=== PATIENT | female | born 1965 | race African-American/Black ===

== ENCOUNTER 2025-02-28 01:33 | Emergency (ER) | payer MEDICARE, SELFPAY ==
[2025-02-28 01:46] VITALS: BP 147/82; PULSE 107; RESP 18; TEMP 36.7; O2SAT 100; BMI 20.3
[2025-02-28 02:10] LABS: Rapid Strep A Test Positive (Negative)
[2025-02-28 02:38] LABS: Influenza A NEGATIVE (Negative); Influenza B NEGATIVE (Negative); Respiratory Syncytial Virus Ce NEGATIVE (Negative); SARS-CoV-2 PCR NEGATIVE (Negative)
[2025-02-28] MEDS: penicillin g (L-A) 1,200,000 unit/2 mL Syr 1200000 UNIT IM (02:59)
[2025-02-28 03:04] VITALS: BP 118/68; PULSE 83; RESP 16; O2SAT 100
--- NOTE | 2025-02-28 03:23 | ED_ITS ---
HPI - General Adult General: Chief complaint: Upper Respiratory Infection Stated complaint: Throat feels swollen hard to breath Time Seen by Provider: 02/28/25 01:58 History of Present Illness: Almas Haddad presents to the emergency department with severe throat pain and difficulty swallowing. The patient reports swollen glands and an inability to swallow, describing her throat as hurting real bad. She mentions that she has tried various remedies, including gargling with salt water and using hot water in the shower to loosen phlegm, but these have been ineffective. The patient notes that she has excessive salivation and difficulty expectorating phlegm, stating, I can't get it up. I've tried everything. She also reports some difficulty breathing, particularly related to the phlegm accumulation. The severity of her symptoms is significant, with the patient agreeing that her discomfort can be characterized as pain. The duration and exact onset of symptoms are not specified, but the acute nature of her presentation suggests a recent development. Related Data Allergies Allergy/AdvReac Type Severity Reaction Status Date / Time No Known Allergies Allergy Verified 02/28/25 01:48 Review of Systems General: Reports: 10 or more systems reviewed and unremarkable except in HPI and below Physical Exam Const: COMMON NORMALS: no acute distress, patient oriented x3, healthy appearing, alert and well nourished HENMT: COMMON NORMALS: normocephalic HEAD & SCALP: normocephalic MOUTH: tongue normal and moist mucous membranes abnormal; no drooling and no muffled voice THROAT: abnormal tonsil bilateral erythema and exudates and posterior oropharynx abnormal (Erythematous and swollen no kassie tonsillar abscess) Eye: COMMON NORMALS: EOMs intact bilaterally Neck/C-Spine: COMMON NORMALS: full ROM and supple Resp: COMMON NORMALS: normal respiratory effort, No retractions and clear to auscultation bilaterally AUSCULTATION: clear to auscultation bilaterally Cardio: COMMON NORMALS: regular rate, regular rhythm, No gallops present (Cardio) and No murmurs present (Cardio) RATE: regular rate RHYTHM: regular rhythm GI: COMMON NORMALS: Soft to palpation and non-tender PALPATION: Yes Soft to palpation Extremity: GENERAL: Yes normal exam except as noted Neuro: COMMON NORMALS: patient oriented x3 SENSORIUM/ORIENTATION: Yes alert Skin: COMMON NORMALS: no rashes or lesions noted GENERAL SKIN EXAM: no rashes or lesions noted Course Vital Signs: Vital signs: Vital Signs Temperature 98.0 F 02/28/25 01:46 Pulse Rate 83 02/28/25 03:04 Respiratory Rate 16 02/28/25 03:04 Blood Pressure 118/68 02/28/25 03:04 Pulse Oximetry 100 02/28/25 03:04 Oxygen Delivery Me thod Room Air 02/28/25 03:04 MDM - General Adult Medical Decision Making Patient presents with classic symptoms of strep throat, including severe sore throat, difficulty swallowing, and swollen glands. Physical examination reveals significant oropharyngeal swelling without evidence of peritonsillar abscess. The patient reports difficulty expectorating phlegm despite attempts with steam inhalation. Given the clinical presentation, a diagnosis of streptococcal pharyngitis is made. - Administer intramuscular 1,200,000 units pen G - Educate patient on symptomatic relief measures: - Gargle with salt water for pain relief (warn about initial burning sensation) - Anticipate symptom improvement within 24 hours post-injection - Assess for adequate airway and breathing (patient denies current difficulty) Lab Data Laboratory Results Influenza A (PCR) Negative (Negative) 02/28/25 01:55 Influenza Type B (PCR) Negative (Negative) 02/28/25 01:55 RSV (PCR) Negative (Negative) 02/28/25 01:55 SARS-CoV-2 (PCR) Negative (Negative) 02/28/25 01:55 Group A Strep Rapid Positive (Negative) H 02/28/25 01:55 No radiology studies performed this visit Discharge Plan Discharge Patient Disposition: Home Clinical Impression: Acute streptococcal pharyngitis Condition: Stable Discharge Orders: Discharge ED (Routine); Ordered 02/28/25 Ordered By: David Law Discharge Diet: Advance as tolerated Discharge Activity: Resume usual activity Patient Instructions: Opioid Safety, Pain Management Activity Restrictions/Additional Instructions: Please return to the emergency department with any new or worsening symptoms. Print Language: Bulgarian Coding Level of Care Code ED Lip Reading Teacher for Santo Nguyen
[2025-02-28 03:39] VITALS: BP 118/68; PULSE 107; RESP 16; O2SAT 99
== END 2025-02-28 03:40 | disposition home or self-care (01) ==
PROVIDERS: Emergency Provider General Practice
DX: J02.0 Streptococcal pharyngitis (principal); Z11.52 Encounter for screening for COVID-19
CPT/HCPCS: 87637; 87880; 96372; 99284; J0561

== ENCOUNTER 2025-08-26 01:46 | Emergency (ER) | payer MEDICARE, MEDICAID, SELFPAY ==
[2025-08-26 01:41] VITALS: BP 162/95; PULSE 81; RESP 21; TEMP 36.9; O2SAT 99
--- NOTE | 2025-08-26 01:45 | CTR_ITS ---
PROCEDURE INFORMATION: Exam: CT Head Without Contrast Exam date and time: 08/26/2025 1:50 AM Age: 60 years old Clinical indication: Pain; Headache; EMS arrival directly to CT for intractable MILLER. TECHNIQUE: Imaging protocol: Computed tomography of the head without contrast. Radiation optimization: All CT scans at this facility use at least one of these dose optimization techniques: automated exposure control; mA and/or kV adjustment per patient size (includes targeted exams where dose is matched to clinical indication); or iterative reconstruction. COMPARISON: No relevant prior studies available. RADIATION DOSE METRICS: Total DLP (mGy-cm): 826.59 FINDINGS: Brain: No acute intracranial hemorrhage. No midline shift or mass effect. No acute territorial infarct. Global age-related cerebral atrophy. 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 Cerebral ventricles: No ventriculomegaly. Paranasal sinuses: Visualized sinuses are unremarkable. No fluid levels. Mastoid air cells: Visualized mastoid air cells are well aerated. Bones: Unremarkable. No acute fracture. Soft tissues: Unremarkable. CT/CT head wo con* [id number] IMPRESSION: No acute intracranial hemorrhage. No midline shift or mass effect.
--- OUTSIDE RECORDS SUMMARY | 2025-08-26 01:51 | XMS_ITS | Clinical Summary ---
Author Organization [facility] Address [address] [place] [address] Care Team Providers Care Volunteer Fire Fighter Name Role Phone Unavailable Primary Care Provider Unavailabl e Source Comments PLEASE NOTE, if this patient is a minor, it may be UNLAWFUL to discuss sensitive information that is contained in these records (such as FAMILY PLANNING, MENTAL HEALTH or SUBSTANCE ABUSE) with the minor patient's parent or other person without the patient's specific authorization.[facility] Medications HYDROcodone-acet aminophen (NORCO) 5-325 mg per tablet 07/19/2021 Active ibuprofen 600 mg tablet 07/19/2021 Active sulfamethoxazole -trimethoprim (BACTRIM DS) 800-160 mg per tablet 07/19/2021 Active traMADoL (ULTRAM) 50 mg tablet Take 1 Tablet by mouth every 6 (six) hours as needed for pain 15 Tablet 07/24/2021 Active Immunizations Immunization Administration Dates Next Due INFLUENZA, UNSPECIFIED 12/12/2019 Moderna COVID-19 Vaccine, re d cap blue label, 12+ Primary Series 01/21/2021,12/24/2020 TDAP 12/21/2019 Social History Tobacco Use Types Packs/Day Years Used Date Smoking Tobacco: Light Smoker Smokeless Tobacco: Never Alcohol Use Standard Drinks/Week Comments Yes 0 (1 standard drink = 0.6 oz pur e alcohol) Social Connections Answer Date Recorded Connectedness 0 06/22/2024 Financial Resource Strain Answer Date R ecorded Financial Resource Strain 0 2020 Stress Answer Date Recorded Stress 0 07/22/2021 Physical Activity Answer Date Recorded Physical Activity 0 07/22/2021 Food Insecurity Answer Date Recorded Food 0 07/06/2024 Transportation Needs Answer Date Record ed Transportation 0 07/22/2021 Housing Stability Answer Date Recorded Housing 0 07/22/2021 Safety and Environment Answer Date Frank rded Safety 0 07/22/2021 Utilities Answer Date Recorded Utilities 0 07/22/2021 Employment Answer Date Recorded Stress 0 06/22/2024 Comments Unknown Sex and Gender Information Value Date Recorded Sex Assigned at Not on file Legal Sex Female 11:33 AM PDT Gender Identity Not on file Sexual Orientation Not on file Last Filed Vital Signs Vital Sign Reading Time Taken Comments Blood Pressure 144/68 07/22/2021 9:10 AM PDT Pulse 58 07/22/2021 9:10 AM PDT Temperature 36.6 C (97.8 F) 07/22/2021 9:10 AM PDT Respiratory Rate 16 07/22/2021 9:10 AM PDT Oxygen Saturation - - Inhaled Oxygen Concentration - - Weight 66.2 kg (146 lb) 07/22/2021 9:10 AM PDT Height 167.6 cm (5' 6 ) 07/22/2021 9:10 AM PDT Body Mass Index 23.57 07/22/2021 9:10 AM PDT Plan of Treatment Health Maintenance Due Date Last Done Comments Anxiety Screening 1965 Diabetes Screening 1965 HPV Screening (self-collect) 1965 HPV Screening 1965 Hepatitis C Screening 1965 Lipid Screening 1965 Pap + HPV 1965 Tobacco Cessation Counseling (#1) 1965 Tobacco Screening 1965 HIV Screening 1978 Medicare Annual Wellness Visit 1981 Cervical Cancer Screening 02/05/1984 Pap Smear 02/05/1984 Breast Cancer Screening (Mammogram) 2003 CT Colonography 02/05/2008 Colonoscopy 02/05/2008 Colorectal Cancer Screening 02/05/2008 FIT/gFOBT 02/05/2008 Fecal DNA 02/05/2008 Flexible Sigmoidoscopy 02/05/2008 Imm-Pneumococcal 50+ (1 of 1 - PCV) 2013 Imm-Zoster, Recombinant (1 of 2) 2013 Hypertension Screening (#1) 07/22/2022 Alcohol and Drug Screen 10/11/2024 07/22/2021, 07/22 Depression Annual Screen 10/11/2024 [id number] ( season) 2025 021, 12/24/2020 Imm-Influenza (#1) 2025 12/12/2019 Imm-DTaP/Tdap/Td (2 - Td or Tdap) 12/20/2029 020 Cervical Ablation/Cold-Knife Conization Discontinued Cervical Cryotherapy Discontinued Colposcopy Discontinued Excision/Leep Discontinued HPV Genotyping Discontinued Vaginal Pap Discontinued Vulvoscopy Discontinued Insurance [facility] [place] [place]
--- OUTSIDE RECORDS SUMMARY | 2025-08-26 01:51 | XMS_ITS | Clinical Summary ---
Author Organization [facility] Address [address] [place] [address] Phone Care Team Providers Care Vehicle Body Builder Name Role Phone Pcp, No Primary Care Provider Unavailabl e Source Comments The [employer] EMR is fully implemented at [facility] across theentire continuum of care.[facility] Allergies No known active allergies Medications * Always verify current medications with the patient. ibuprofen (MOTRIN) 600 mg tablet Take 1 tablet by mouth 3 times daily as needed for Pain. Take with food. 30 tablet 1 Active HYDROcodone-ac etaminophen (NORCO) 5-325 mg tablet Take 1 tablet by mouth every 6 hours as needed for Pain. Max dose of acetaminophen is 3000 mg from all sources in 24 hours. 4 tablet 1 Active Social History Tobacco Use Types Packs/Day Years Used Date Smoking Tobacco: Never Assessed Comments Unknown Sex and Gender Information Value Date Recorded Sex Assigned at Not on file Legal Sex Female 12:03 PM PDT Gender Identity Not on file Sexual Orientation Not on file Last Filed Vital Signs Vital Sign Reading Time Taken Comments Blood Pressure 132/75 07/19/2021 5:57 AM PDT Pulse 80 07/19/2021 5:57 AM PDT Temperature 36.7 C (98.1 F) 07/18/2021 11:59 PM PDT Respiratory Rate 15 07/19/2021 5:57 AM PDT Oxygen Saturation 99% 07/18/2021 11:59 PM PDT Inhaled Oxygen Concentration - - Weight - - Height - - Body Mass Index - - Plan of Treatment Health Maintenance Due Date Last Done Comments CRC Screening 1963 CT Colonography Test 1965 Cologuard 1965 Colonoscopy 1965 FIT Test 1965 Flexible Sigmoidoscopy 1963 Hep C Screening 1963 Depression Assessment (PHQ 2 -9 / PHQ A / EPDS) 1975 DTaP,Tdap,and Td Vaccines (1 - Tdap) 1982 Cervical Cancer Screening 02/05/1984 HPV or Cotesting 02/05/1984 Pap Smear 02/05/1984 Mammography 1993 Pneumococcal 50+ (1 of 1 - PCV) 2013 Zoster Vaccine (1 of 2) 2013 COVID-19 Vaccination (SARS-C oV-2) (1 - 2024- season) 2025 Influenza Vaccine (#1) 2025 RSV Obstetrics & Adults (1 - 1-dose 75+ series) 2038 Hepatitis B Vaccine Aged Out No longe r eligible based on patient's age to complete this topic Insurance * Guarantor: Geovanny GAO Account Type Relation to Patient Date of Phone Billing Address Personal/Family Self 1965 [address] [place] [address] [facility] Care MEDICARE * Guarantor: MURRAY Emilyrola Account Type Relation to Patient Date of Phone Billing Address Personal/Family Self 1965 [address] [place] [address] [facility] MEDIC[facility] Advance Directives For more information, please contact: [phone] Healthcare Agents on File Name Relationship Healthcare Agent [facility] Communication Ana Payton Child 4. Emergency Con tact Only - Only Share Emergent Health Information Care Teams Vehicle Body Builder Relationship Specialty Start Date End Date Pcp, No PCP - General 07/11/21
--- NOTE | 2025-08-26 02:02 | ECG_ITS ---
[employer] Test Date: 2025-08-26 Pat Name: Geovanny Haddad Department: Room: Gender: Female Church Business Administrator: : 1965 Requested By: Keaton James Order Number: [id number] Allen MD: Alessandro Peralta M.D. Measurements Intervals Hazel Rate: 94 P: 0 SC: 0 QRS: 54 QRSD: 86 T: 79 QT: 399 QTc: 499 Interpretive Statements SINUS RHYTHM WITH FREQUENT VENTRICULAR PREMATURE COMPLEXES VOLTAGE CRITERIA FOR LVH [MEETS CRITERIA IN ONE OF: R(aVL), S(V1), R(V5), R(V5/V6)+S(V1)] INTERPRETATION BASED ON A DEFAULT AGE OF 40 YEARS No previous ECG available for comparison Electronically Signed On 08-26-2025 15:10:16 CRM MARKETING ANALYST by Alessandro Peralta M.D. [id number]
--- NOTE | 2025-08-26 02:04 | XRR_ITS ---
PROCEDURE INFORMATION: Exam: XR Chest Exam date and time: 08/26/2025 2:11 AM Age: 60 years old Clinical indication: Chest pressure and other: Lorenzo/hypertension; EMS arrival for intractable LORENZO with chest pain and hypertension. EMS reports history of afib. ; Additional info: Headache, HTN, chest pain TECHNIQUE: Imaging protocol: Radiologic exam of the chest. Views: 1 view. COMPARISON: No relevant prior studies available. FINDINGS: Lungs: Unremarkable. No consolidation. Pleural spaces: Unremarkable. No pleural effusion. No pneumothorax. Heart/Mediastinum: Cardiomegaly. Bones/joints: Unremarkable. XR/XR chest 1V portable [id number] IMPRESSION: No pneumonia.
[2025-08-26 02:19] LABS: Hematocrit 41.8 % (36-47); Hemoglobin 13.10 g/dL (11.27-16.99); Mean Corpuscular HGB Conc 31.3 g/dL (30-55); Mean Corpuscular Hemoglobin 26.1 pg (27-33); Mean Corpuscular Volume 83.3 fl (85-98); Nucleated Red Blood Cells % 0 %; Platelet Count 175 10^3/cmm (157-399); Red Blood Count 5.02 10^6/uL (3.85-5.65); White Blood Count 7.58 10^3/uL (3.29-11.43)
[2025-08-26 02:21] LABS: INR 0.86 (0.8-1.2); Partial Thromboplastin Time 28.6 SECONDS (23.9-36.7); Prothrombin Time 12.40 SECONDS (12.1-14.9)
[2025-08-26] MEDS: haloperidol inj 5 mg/mL INJ 1 mL IVP (02:21)
[2025-08-26 02:22] VITALS: RESP 21; O2SAT 100
[2025-08-26] MEDS: morphine 4 mg/mL SDV 1 mL IVP (02:22)
[2025-08-26 02:30] LABS: Alanine Aminotransferase 9 U/L (0-33); Albumin Level 4.5 g/dL (3.5-5.2); Alkaline Phosphatase 111 U/L (35-105); Anion Gap 13.2 (5-19); Aspartate Amino Transferase 16 U/L (0-32); Blood Urea Nitrogen 20 mg/dL (8-23); Calcium 9.4 mg/dL (8.5-10.5); Carbon Dioxide 28 mmol/L (22-29); Chloride 104 mmol/L (98-107); Globulin 2.6 g/dL (1.3-4.6); Glucose 123 mg/dL (65-115); Magnesium 2.3 mg/dL (1.7-2.3); Osmolality Calculated 296 mOsm/kg (285-295); Potassium 4.2 mmol/L (3.5-5.1); Sodium 141 mmol/L (136-145); Total Protein 7.1 g/dL (6.6-8.7); Troponin(5th) Baseline 15 ng/L (0-10)
[2025-08-26 02:45] LABS: Glucose Urine UA Negative (Normal); Nitrate Urine Negative (Negative); Specific Gravity, Urine 1.019 (1.005-1.030)
[2025-08-26 02:49] LABS: Add Urine Microscopic? YES
[2025-08-26 02:53] LABS: PCP Screen Urine Negative (Negative)
--- NOTE | 2025-08-26 03:13 | W.ED.HA ---
HPI - Headache General: Chief Complaint: Headache Stated Complaint: headache Time Seen by Provider: 08/26/25 01:49 History of Present Illness: 60-year-old female Patient presents with right-sided headache and facial numbness. The patient reports pain primarily localized to the right side of the head.The patient has a history of previous stroke, though does not typically experience headaches. Patient also reports associated neck pain. Patient is not participating in exam or history taking further at this time. Related Data Allergies Allergy/AdvReac Type Severity Reaction Status Date / Time No Known Allergies Allergy Verified 02/28/25 01:48 Physical Exam Const: EXAM LIMITATIONS: altered mental status GENERAL APPEARANCE: cooperative HENMT: COMMON NORMALS: normocephalic, atraumatic and Normal external nose present HEAD & SCALP: normocephalic and atraumatic FACE & SINUS: normal facial exam and face symmetric NOSE: Normal external nose present Eye: COMMON NORMALS: Equal, round and reactive pupils present and EOMs intact bilaterally PUPIL: Yes Equal, round and reactive pupils present Neck/C-Spine: GENERAL: Yes trachea midline Chest: CHEST: Yes Symmetrical chest wall rise Resp: COMMON NORMALS: normal respiratory effort, No retractions, No use of accessory muscles and clear to auscultation bilaterally AUSCULTATION: clear to auscultation bilaterally Cardio: COMMON NORMALS: regular rate and regular rhythm RATE: regular rate RHYTHM: regular rhythm GI: COMMON NORMALS: Normal to inspection, nondistended, normoactive bowel sounds present Extremity: COMMON NORMALS: no pedal edema Neuro: MADI COMA SCALE: document GCS findings Mozier coma scale eye opening: To sound Madi coma scale verbal response: Confused Mozier coma scale motor response: Obey commands Mozier coma scale total score: 13 COORDINATION/BALANCE: [id number] test normal SPEECH: no expressive aphasia and no receptive aphasia SENSORY EXAM: Yes extremities (intact) MOTOR EXAM: Normal motor muscle tone present throughout COORDINATION: [id number] test normal Course Vital Signs: Vital signs: Vital Signs Temperature 98.5 F 08/26/25 01:41 Pulse Rate 73 08/26/25 04:31 Respiratory Rate 16 08/26/25 04:31 Blood Pressure 134/89 08/26/25 04:31 Pulse Oximetry 97 08/26/25 04:31 Oxygen Delivery Me thod Room Air 08/26/25 01:41 MDM - Headache Medical Decision Making Patient is hypertensive and route to the hospital, and on arrival. She squirms in pain, and makes strange facial movements. She is given morphine and Haldol with complete relief of her headache. Her blood pressure is currently 121/87, heart rate 90, saturations 100% on room air. Initially, EKG timed 202 read at 204 reveals a sinus rhythm with frequent PVCs. No acute ST wave changes. PVCs are less frequent currently. CBC is normal. BMP is normal. Chest x-ray is clear. Head CT is negative. Urinalysis is negative. Urine drug screen is positive for marijuana and amphetamines. With resolution of her symptoms she will be stable for discharge. She is encouraged not to use illicit substances. Lab Data 08/26/25 01:30 08/26/25 01:[address] 08/26/25 01:45 IMPRESSION: No acute intracranial hemorrhage. No midline shift or mass effect. Chest X-Ray 08/26/25 02:04 IMPRESSION: No pneumonia. Laboratory Results WBC 7.58 10^3/uL (3.29-11.43) 08/26/25 01:30 RBC 5.02 10^6/uL (3.85-5.65) 08/26/25 01:30 Hgb 13.10 g/dL (11.27-16.99) 08/26/25 01:30 Hct 41.8 % (36-47) 08/26/25 01:30 MCV 83.3 fl (85-98) L 08/26/25 01:30 MCH 26.1 pg (27-33) L 08/26/25 01:30 MCHC 31.3 g/dL (30-55) 08/26/25 01:30 RDW 13.7 % (12.1-15.1) 08/26/25 01:30 Plt Count 175 10^3/cmm (157-399) 08/26/25 01:30 MPV 12.7 fL (7.4-10.4) H 08/26/25 01:30 Neut % (Auto) 30.0 % 08/26/25 01:30 Lymph % (Auto) 60.9 % 08/26/25 01:30 [place] % (Auto) 7.3 % 08/26/25 01:30 Eos % (Auto) 1.2 % 08/26/25 01:30 Baso % (Auto) 0.3 % 08/26/25 01:30 Neut # (Auto) 2.28 10^3/uL (1.8-7.7) 08/26/25 01:30 Lymph # (Auto) 4.6 10^3/uL (0.8-4.8) 08/26/25 01:30 [place] # (Auto) 0.6 10^3/uL (0.2-0.9) 08/26/25 01:30 Eos # (Auto) 0.1 10^3/uL (0.0-0.8) 08/26/25 01:30 Baso # (Auto) 0.0 10^3/uL (0.0-0.1) 08/26/25 01:30 Nucleated RBC % (auto) 0 % 08/26/25 01:30 Nucleated RBCs # 0.0 /100WBC 08/26/25 01:30 PT 12.40 SECONDS (12.1-14.9) 08/26/25 01:30 INR 0.86 (0.8-1.2) 08/26/25 01:30 APTT 28.6 SECONDS (23.9-36.7) 08/26/25 01:30 Sodium 141 mmol/L (136-145) 08/26/25 01:30 Potassium 4.2 mmol/L (3.5-5.1) 08/26/25 01:30 Chloride 104 mmol/L (98-107) 08/26/25 01:30 Carbon Dioxide 28 mmol/L (22-29) 08/26/25 01:30 Anion Gap 13.2 (5-19) 08/26/25 01:30 BUN 20 mg/dL (8-23) 08/26/25 01:30 Creatinine 0.8 mg/dL (0.5-0.9) 08/26/25 01:30 GFR Calculation 87.9 mL/min (90-130) L 08/26/25 01:30 Glucose 123 mg/dL (65-115) H 08/26/25 01:30 Calculated Osmolality 296 mOsm/kg (285-295) H 08/26/25 01:30 Calcium 9.4 mg/dL (8.5-10.5) 08/26/25 01:30 Phosphorus 4.3 mg/dL (2.5-4.5) 08/26/25 01:30 Magnesium 2.3 mg/dL (1.7-2.3) 08/26/25 01:30 Total Bilirubin 0.2 mg/dL (0.15-1.2) 08/26/25 01:30 AST 16 U/L (0-32) 08/26/25 01:30 ALT 9 U/L (0-33) 08/26/25 01:30 Alkaline Phosphatase 111 U/L (35-105) H 08/26/25 01:30 Troponin T Baseline 15 ng/L (0-10) H 08/26/25 01:30 Troponin T 120 Minute 13.16 ng/L (0-10) H 08/26/25 03:36 Delta Troponin T -1.84 ABS# (0-10) L 08/26/25 03:36 C-Reactive Protein 3.0 mg/L (0.0-4.9) 08/26/25 01:30 Total Protein 7.1 g/dL (6.6-8.7) 08/26/25 01:30 Albumin 4.5 g/dL (3.5-5.2) 08/26/25 01:30 Globulin 2.6 g/dL (1.3-4.6) 08/26/25 01:30 Urine Color Yellow (Yellow) 08/26/25 02:32 Urine Appearance Clear (CLEAR) 08/26/25 02:32 Urine pH 7.0 (5-7) 08/26/25 02:32 Ur Specific [place] 1.019 (1.005-1.030) 08/26/25 02:32 Urine Protein Negative (Negative) 08/26/25 02:32 Urine Glucose (UA) Negative (Normal) 08/26/25 02:32 Urine Ketones Negative (Negative) 08/26/25 02:32 Urine Blood 1+ (Negative) A 08/26/25 02:32 Urine Nitrate Negative (Negative) 08/26/25 02:32 Urine Bilirubin Negative (Negative) 08/26/25 02:32 Urine Urobilinogen 1.0 mg/dL (Negative) 08/26/25 02:32 Ur Leukocyte Esterase Trace (Negative) A 08/26/25 02:32 Urine RBC 6-10 /hpf (0-2) 08/26/25 02:32 Urine WBC 0-5 /hpf (0-5) 08/26/25 02:32 Ur Squamous Epith Cells 0-5 /hpf (0-5) 08/26/25 02:32 Amorphous Sediment Not Reportable 08/26/25 02:32 Urine Bacteria None seen /hpf (NONE) 08/26/25 02:32 Hyaline Casts 0.81 /lpf 08/26/25 02:32 Urine Opiates Screen Negative ng/mL (Negative) 08/26/25 02:32 Ur Barbiturates Screen Negative ng/mL (Negative) 08/26/25 02:32 Ur Phencyclidine Scrn Negative ng/mL (Negative) 08/26/25 02:32 Ur Amphetamines Screen Positive ng/mL (Negative) H 08/26/25 02:32 U Benzodiazepines Scrn Negative ng/mL (Negative) 08/26/25 02:32 Urine Cocaine Screen Negative ng/mL (Negative) 08/26/25 02:32 U Marijuana (THC) Screen Positive ng/mL (Negative) H 08/26/25 02:32 All radiology interpretation(s) finalized by discharge Discharge Plan Discharge Patient Disposition: Home Clinical Impression: Headache Qualifiers: Headache type: unspecified Headache chronicity pattern: acute headache Intractability: not intractable Qualified Code(s): R51.9 - Headache, unspecified Amphetamine adverse reaction Qualifiers: Encounter type: initial encounter Qualified Code(s): T43.625A - Adverse effect of amphetamines, initial encounter Condition: Stable Discharge Orders: Discharge ED (Routine); Ordered 08/26/25 Ordered By: Keaton Sanchez Patient Instructions: Acute Delirium (ED), Methamphetamine Use Disorder (ED), Opioid Safety, Pain Management, Patient Portal & Prachi Instructions Activity Restrictions/Additional Instructions: Return for fever, mental status changes, any other concerning symptoms. Avoid any stimulants or illicit drugs. Print Language: Barbadian Coding Level of Care Code ED Gas Roller Operator for Santo Nguyen
[2025-08-26 04:02] LABS: Troponin 5 2HR 13.16 ng/L (0-10); Troponin 5 2HR Delta -1.84 ABS# (0-10)
[2025-08-26 04:31] VITALS: BP 134/89; PULSE 73; RESP 16; O2SAT 97
== END 2025-08-26 04:32 | disposition home or self-care (01) ==
PROVIDERS: Emergency Provider Emergency Medicine
DX: R51.9 Headache, unspecified (principal); T43.625A Adverse effect of amphetamines, initial encounter; X58.XXXA Exposure to other specified factors, initial encounter
CPT/HCPCS: 36415; 70450; 71045; 80053; 80306; 81001; 83735; 84100; 84484; 85025; 85610; 85730; 86140; 93005; 96361; 96374; 96375; 99285; J1630; J2270; J7040

== ENCOUNTER → 2025-09-03 15:25 | Outpatient (BNVA) | payer MEDICARE, MEDICAID, SELFPAY | DX: Z76.89 Persons encountering health services in other specified circumstances (principal); Z13.6 Encounter for screening for cardiovascular disorders; E55.9 Vitamin D deficiency, unspecified; M25.59 Pain in other specified joint; F41.9 Anxiety disorder, unspecified | CPT/HCPCS: 80053; 80061; 82306; 84443; 85025; 85651; 86140 ==

== ENCOUNTER 2025-09-07 05:35 | Emergency (ER) | payer MEDICARE, MEDICAID, SELFPAY ==
--- NOTE | 2025-09-07 05:40 | W.ED.EYEPROB ---
HPI - Eye Problem General: Chief complaint: Eye Problems Stated complaint: EYE PAIN Time Seen by Provider: 09/07/25 05:38 Source: patient and EMS Mode of arrival: EMS Limitations: no limitations History of Present Illness: 60-year-old female states she has been having right pain on and off for weeks. States that sharp pain denies any vision changes she denies headache. She denies any injuries or fevers. Related Data Previous Rx's ?Medication ?Instructions ?Recorded cholecalciferol (vitamin D3) 10 10 mcg PO DAILY #30 caps 09/03/25 mcg (400 unit) capsule citalopram 20 mg tablet (Celexa) 20 mg PO DAILY #30 tabs 09/03/25 melatonin 5 mg capsule 5 mg PO .hs #30 caps 09/03/25 meloxicam 7.5 mg tablet 7.5 mg PO DAILY #30 tabs 09/03/25 erythromycin 5 mg/gram (0.5 %) eye 1 applic ophthalmic (eye) Q6H 5 09/07/25 ointment (3.5 gram tube) days #3.5 grams Allergies Allergy/AdvReac Type Severity Reaction Status Date / Time No Known Allergies Allergy Verified 09/03/25 14:18 Review of Systems Eyes: Reports: eye discomfort [facility] ED PFSH: Medical History CVA (cerebral vascular accident) 2021 PTSD (post-traumatic stress disorder) Anxiety Moderate episode of recurrent major depressive disorder Surgical History (Updated 09/03/25 @ 14:44 by María Etienne NP) H/O: hysterectomy Total Family History (Updated 09/03/25 @ 14:43 by María Etienne NP) Mother Congestive heart failure (CHF) COPD (chronic obstructive pulmonary disease) Stroke Heart disease Social History Smoking and tobacco/nicotine status: current every day tobacco/nicotine user (Marijuana) Substance/Drug Use: current Substance/Drug use frequency: daily Physical Exam Const: COMMON NORMALS: no acute distress, patient oriented x3 and healthy appearing HENMT: COMMON NORMALS: normocephalic and atraumatic HEAD & SCALP: normocephalic and atraumatic Eye: COMMON NORMALS: Equal, round and reactive pupils present and EOMs intact bilaterally PUPIL: Yes Equal, round and reactive pupils present OTHER: Normal vision in the right eye no ulcer or abrasion noted on fluorescein exam pupils are reactive Neck/C-Spine: COMMON NORMALS: full ROM and supple Chest: COMMONS NORMALS: normal inspection of the chest Resp: COMMON NORMALS: normal respiratory effort Cardio: COMMON NORMALS: regular rate RATE: regular rate Extremity: COMMON NORMALS: normal to inspection and full ROM Neuro: COMMON NORMALS: patient oriented x3, moves all extremities and no focal motor deficits Psych: COMMON NORMALS: mental status grossly normal, Normal thought process present and cooperative THOUGHT PROCESS: Normal thought process present Skin: COMMON NORMALS: no rashes or lesions noted and no wounds GENERAL SKIN EXAM: no rashes or lesions noted Course Vital Signs: Vital signs: Vital Signs Temperature 98.4 F 09/07/25 05:48 Pulse Rate 98 09/07/25 05:48 Respiratory Rate 20 H 09/07/25 05:48 Blood Pressure 169/120 09/07/25 05:48 Pulse Oximetry 100 09/07/25 05:48 Oxygen Delivery Me thod Room Air 09/07/25 05:48 MDM - Eye Problem Medical Decision Making Patient presents here with right eye pain differential includes acute angle glaucoma, corneal abrasion, corneal ulcer. Patient has no signs of the above. I did measure her intraocular pressure it was 12. No signs of acute angle glaucoma on fluorescein stain she has no signs of abrasion or ulcer does have some erythema to the eye likely has a conjunctivitis we will prescribe erythromycin ointment and have her follow[facility] with [facility] she is return if worsening she understands agrees to plan No radiology studies performed this visit Discharge Plan Discharge Patient Disposition: Home Clinical Impression: Conjunctivitis Qualifiers: Conjunctivitis type: acute Laterality: right Condition: Stable Prescriptions: New erythromycin 5 mg/gram (0.5 %) ointment 1 applic ophthalmic (eye) Q6H 5 Days Qty: 3.5 0RF No Action citalopram [Celexa] 20 mg tablet 20 mg PO DAILY Qty: 30 0RF melatonin 5 mg capsule 5 mg PO .hs Qty: 30 0RF meloxicam 7.5 mg tablet 7.5 mg PO DAILY Qty: 30 0RF Rx Instructions: Do not take any other NSAIDs while taking. cholecalciferol (vitamin D3) 10 mcg (400 unit) capsule 10 mcg PO DAILY Qty: 30 0RF Discharge Orders: Discharge ED (Routine); Ordered 09/07/25 Ordered By: Jaquelin Graham Referrals: [facility] [Outside] - 4-7 days María Etienne NP [Primary Care Provider, [facility]] Discharge Diet: Advance as tolerated Discharge Activity: Resume usual activity Patient Instructions: Conjunctivitis (ED) Print Language: Citizen Of [place] Coding Level of Care Code ED Hybrid Tester for Santo Nguyen
--- OUTSIDE RECORDS SUMMARY | 2025-09-07 05:41 | XMS_ITS | Clinical Summary ---
Author Organization [facility] Address [address] [place] [address] Phone Care Team Providers Care Electric Fan Assembler Name Role Phone Pcp, No Primary Care Provider Unavailabl e Source Comments The [employer] EMR is fully implemented at [facility] across theentire continuum of care.[facility] Allergies No known active allergies Medications * [...] of Phone Billing Address Personal/Family Self 1965 [address] [place] [address] [facility] Care MEDICARE * Guarantor: MURRAY Emilyrola Account Type Relation to Patient Date of Phone Billing Address Personal/Family Self 1965 [address] [place] [address] [facility] PL[facility] MEDICARE Advance Directives For more information, please contact: [phone] Healthcare Agents on File Name Relationship Healthcare Agent [facility] Communication Ana Payton Child 4. Emergency Con tact Only - Only Share Emergent Health Information Care Teams Electric Fan Assembler Relationship Specialty Start Date End Date Pcp, No PCP - General 07/11/21
[2025-09-07 05:43] VITALS: BP 169/120; PULSE 98; RESP 20; TEMP 36.9; O2SAT 100; BMI 18.8
[2025-09-07 05:48] VITALS: BP 169/120; PULSE 98; RESP 20; TEMP 36.9; O2SAT 100
[2025-09-07 06:18] VITALS: BP 160/101; PULSE 89; O2SAT 98
[2025-09-07] MEDS: tetracaine 0.5% Op Soln 4 mL Btl 1 DROP EYE-BOTH (06:29)
--- NOTE | 2025-09-10 12:59 | DCPLANNER ---
faxed outpatient referral to dr nelly cabrera
== END 2025-09-07 06:32 | disposition home or self-care (01) ==
PROVIDERS: Emergency Provider Emergency Medicine
DX: H10.31 Unspecified acute conjunctivitis, right eye (principal); F12.90 Cannabis use, unspecified, uncomplicated; Z86.73 Personal history of transient ischemic attack (TIA), and cerebral infarction without residual deficits
CPT/HCPCS: 99283; J9999

== ENCOUNTER 2025-09-12 12:21 | Emergency (ER) | payer MEDICARE, MEDICAID, SELFPAY ==
[2025-09-12 12:30] VITALS: BP 150/96; PULSE 60; TEMP 36.8; O2SAT 100; BMI 20.2
[2025-09-12] MEDS: tetracaine 0.5% Op Soln 4 mL Btl 1 DROP EYE-BOTH (12:58)
--- OUTSIDE RECORDS SUMMARY | 2025-09-12 12:58 | XMS_ITS | Clinical Summary ---
Author Organization [facility] Address [address] [place] [address] Phone Care Team Providers Care Comber Fixer Name Role Phone Pcp, No Primary Care Provider Unavailabl e Source Comments The [employer] EMR is fully implemented at [facility] across theentire continuum of care.[facility] Allergies No known active allergies Medications * [...] of Phone Billing Address Personal/Family Self 1965 [address] [place] [address] [facility] PLAN [facility] Care MEDICARE * Guarantor: MURRAY Emilyrola Account Type Relation to Patient Date of Phone Billing Address Personal/Family Self 1965 [address] [place] [address] [facility] PL[facility] MEDICARE Advance Directives For more information, please contact: [phone] Healthcare Agents on File Name Relationship Healthcare Agent [facility] Communication Ana Payton Child 4. Emergency Con tact Only - Only Share Emergent Health Information Care Teams Comber Fixer Relationship Specialty Start Date End Date Pcp, No PCP - General 07/11/21
--- NOTE | 2025-09-12 13:23 | W.ED.EYEPROB ---
HPI - Eye Problem General: Chief complaint: Eye Problems Stated complaint: eye spasms Time Seen by Provider: 09/12/25 12:47 History of Present Illness: 60-year-old female presents emergency room complaining of right eye pain excessive watering and redness she has had it for several days she was seen a week ago and given a topical antibiotic ointment it seemed to get better and then worsened again she has had some photophobia with that as well. She has not had any direct trauma. No previous surgeries to the eye. No other illness or injury Associated symptoms: Denies fever(s) or neck pain Related Data Previous Rx's ?Medication ?Instructions ?Recorded cholecalciferol (vitamin D3) 10 10 mcg PO DAILY #30 caps 09/03/25 mcg (400 unit) capsule citalopram 20 mg tablet (Celexa) 20 mg PO DAILY #30 tabs 09/03/25 melatonin 5 mg capsule 5 mg PO .hs #30 caps 09/03/25 meloxicam 7.5 mg tablet 7.5 mg PO DAILY #30 tabs 09/03/25 Allergies Allergy/AdvReac Type Severity Reaction Status Date / Time No Known Allergies Allergy Verified 09/12/25 12:36 Review of Systems Const: Denies: fever(s) or chills Card: Denies: chest pain Resp: Denies: dyspnea Musc: Denies: neck pain or back pain Skin/Breast: Denies: rash PFSH ED PFSH: Medical History CVA (cerebral vascular accident) 2021 PTSD (post-traumatic stress disorder) Anxiety Moderate episode of recurrent major depressive disorder Surgical History H/O: hysterectomy Total Family History Mother Congestive heart failure (CHF) COPD (chronic obstructive pulmonary disease) Stroke Heart disease Social History Smoking and tobacco/nicotine status: current every day tobacco/nicotine user (Marijuana) Substance/Drug Use: current Substance/Drug use frequency: daily Physical Exam Const: GENERAL APPEARANCE: cooperative ORIENTATION/CONSCIOUSNESS: Yes awake, Yes oriented to person, Yes oriented to place and Yes oriented to time HENMT: COMMON NORMALS: normocephalic, atraumatic and hearing grossly normal bilaterally HEAD & SCALP: normocephalic and atraumatic Eye: OTHER: Topical anesthesia was tetracaine. Fluorescein dye applied under black light patient noted to have a central corneal abrasion Resp: COMMON NORMALS: normal respiratory effort, No retractions, No use of accessory muscles and clear to auscultation bilaterally AUSCULTATION: clear to auscultation bilaterally Cardio: COMMON NORMALS: regular rate, regular rhythm and No murmurs present (Cardio) RATE: regular rate RHYTHM: regular rhythm Extremity: COMMON NORMALS: normal to inspection, capillary refill normal, no clubbing, cyanosis or edema, no calf tenderness and no pedal edema Neuro: SENSORIUM/ORIENTATION: Yes oriented to person, Yes oriented to place and Yes oriented to time Skin: COMMON NORMALS: no rashes or lesions noted GENERAL SKIN EXAM: no rashes or lesions noted Course Vital Signs: Vital signs: Vital Signs Temperature 98.3 F 09/12/25 12:30 Pulse Rate 109 H 09/12/25 15:28 Blood Pressure 142/75 09/12/25 15:28 Pulse Oximetry 98 09/12/25 15:28 Oxygen Delivery Me thod Room Air 09/12/25 12:30 MDM - Eye Problem Medical Decision Making Medical decision making Social determinants: None I reviewed the patient's medical record. I reviewed the patient's current home meds. Alternate historians: None Differential diagnosis: Corneal abrasion versus conjunctivitis Lab Review: None Imaging: None Assessment of risk Level of risk: Low Hospitalization considerations: None indicated Reexamination: Unchanged Assessment and plan: Under black light has central corneal abrasion. Continue topical antibiotics given previously contact Dr. Mckenzie office they will see her tomorrow. Cyclogyl applied and eye patch prior to discharge No radiology studies performed this visit Discharge Plan Discharge Patient Disposition: Home Clinical Impression: Corneal abrasion, right Condition: Stable Prescriptions: No Action citalopram [Celexa] 20 mg tablet 20 mg PO DAILY Qty: 30 0RF melatonin 5 mg capsule 5 mg PO .hs Qty: 30 0RF meloxicam 7.5 mg tablet 7.5 mg PO DAILY Qty: 30 0RF Rx Instructions: Do not take any other NSAIDs while taking. cholecalciferol (vitamin D3) 10 mcg (400 unit) capsule 10 mcg PO DAILY Qty: 30 0RF Discharge Orders: Discharge ED (Routine); Ordered 09/12/25 Ordered By: Agusto Call Referrals: [facility] [Other] [facility] [Outside] Discharge Diet: Usual diet Discharge Activity: Increase activity as tolerated Patient Instructions: Corneal Abrasion (ED), Opioid Safety, Pain Management, Patient Portal & Prachi Instructions Activity Restrictions/Additional Instructions: Thank you for choosing [facility] for your healthcare needs today. It is very important that you follow up as instructed or that you return to the Emergency Department should you have concerns or if your condition changes or worsens in any way. Emergency department visits are focused on emergent conditions, in some cases you may require further evaluation on an outpatient basis. You are seen the emergency room with right eye pain on exam we found a fairly significant corneal abrasion. We dilated the eye continue the topical antibiotic ointment and follow-up with Dr. Mckenzie's office. (Please note that included in your discharge packet is information concerning opioid safety and pain management. This information is given to all patients were discharged from the ER regardless of their discharge diagnosis or the medicines they usually take or are prescribed.) Print Language: Maltese Coding Level of Care Code ED Youth Officer for Santo Nguyen
[2025-09-12 15:28] VITALS: BP 142/75; PULSE 109; O2SAT 98
== END 2025-09-12 15:29 | disposition home or self-care (01) ==
PROVIDERS: Emergency Provider Family Medicine
DX: S05.01XD Injury of conjunctiva and corneal abrasion without foreign body, right eye, subsequent encounter (principal); F12.90 Cannabis use, unspecified, uncomplicated; Z86.73 Personal history of transient ischemic attack (TIA), and cerebral infarction without residual deficits; X58.XXXD Exposure to other specified factors, subsequent encounter
CPT/HCPCS: 96372; 99284; J1885; J9999

== ENCOUNTER 2025-09-21 09:36 | Outpatient (CLI) | payer MEDICARE, MEDICAID, SELFPAY ==
--- NOTE | 2025-09-21 09:46 | XR_ITS ---
WS: [id number] XR hip RT 2-3V wo/w pel* [id number] REASON FOR EXAM: right hip pain FINDINGS: No fracture or focal bone lesion. Mild narrowing at the posterior inferior joint space. Anterior superior joint space is intact and well preserved. Mild subchondral sclerosis and osteophytosis of the acetabulum. Minimal to mild osteophytosis of the femoral head. XR/XR hip RT 2-3V wo/w pel* [id number] IMPRESSION: Minimal to mild osteoarthritis of the right hip.
== END 2025-09-21 09:37 | disposition home or self-care (01) ==
LOC: RAD 09:40
DX: M25.551 Pain in right hip (principal); M16.11 Unilateral primary osteoarthritis, right hip; M25.751 Osteophyte, right hip
CPT/HCPCS: 73502